=== PATIENT | female | born 1950 | race American Indian/Alaskan Native ===

== ENCOUNTER 2019-10-28 14:19 | Emergency (ER) | payer MEDICARE ==
[2019-10-28 14:33] VITALS: BP 143/88
[2019-10-28 15:08] LABS: Basophils % (Auto) 0.6 % (0.0-1.8); Eosinophils # (Auto) 0.1 K/mm3 (0.0-0.4); Eosinophils % (Auto) 1.5 % (0.0-4.3); Hematocrit 41.3 % (30.3-42.9); Hemoglobin 13.7 gm/dl (10.1-14.3); Lymphocytes # (Auto) 3.1 K/mm3 (1.2-5.4); Lymphocytes % (Auto) 42.8 % (13.4-35.0); Mean Corpuscular HGB Conc 33 % (30-34); Mean Corpuscular Volume 93 fl (79-97); Monocytes # (Auto) 0.7 K/mm3 (0.0-0.8); Monocytes % (Auto) 9.7 % (0.0-7.3); Platelet Count 184 K/mm3 (140-440); Red Blood Count 4.47 M/mm3 (3.65-5.03); Red Cell Distribution Width 13.6 % (13.2-15.2)
--- NOTE | 2019-10-28 15:17 | XRay Report ---
CHEST 2 VIEWS INDICATION: arm pain, n/v. COMPARISON: None FINDINGS: Support devices: None. Heart: Within normal limits. Lungs/pleura: No acute air space or interstitial disease. No pneumothorax. Additional findings: None. IMPRESSION: No acute findings. Signer Name: Kalpesh Whitehead Jr, MD Signed: 10/28/2019 3:13 PM Workstation Name: [id number]
[2019-10-28 15:18] LABS: INR 0.92 (0.87-1.13)
[2019-10-28 15:20] LABS: Partial Thromboplastin Time 31.8 Sec. (24.2-36.6)
[2019-10-28 15:33] LABS: Alanine Aminotransferase 18 units/L (7-56); Albumin 4.1 g/dL (3.9-5); BUN/Creatinine Ratio 19; Blood Urea Nitrogen 13 mg/dL (7-17); Calcium 9.1 mg/dL (8.4-10.2); Hemolysis Index 8
[2019-10-28] MEDS ORDERED: DEXAMETHASONE 4 MG TAB PO ONE (15:36)
[2019-10-28] MEDS ORDERED: NAPROXEN 500 MG TAB PO ONE (15:36)
--- NOTE | 2019-10-28 15:37 | Emergency Department Report ---
ED Extremity Problem HPI - General Chief complaint: Extremity Injury, Upper Stated complaint: LEFT ARM AND SHOULDER PAIN Time Seen by Provider: 10/28/19 15:16 Source: patient Mode of arrival: Ambulatory Limitations: No Limitations - History of Present Illness Initial comments: 69-year-old female with a history of hypertension, hyperlipidemia and thyroid disease presents to the ER today complaining of left arm pain. Patient states that for the past week she has been having intermittent pain that seems to start in her left elbow, left upper arm and radiates up into her left shoulder and left neck, and down into her left hand. She describes the pain as an achy pain. She states that it seemed to be worse when she has it down, but also seems to get worse on full extension of the arm. She reports mild left sided neck pain and states when the pain is intense she gets nauseous. She denies any vomiting. She denies any associated chest pain, shortness of breath, numbness, focal weakness in that arm, headache, dizziness, vision changes or any other symptoms. She denies any injury or repetitive arm use or strenuous activity. She denies any swelling. She states she has been taking Tylenol without much relief of her pain. MD Complaint: extremity pain -: week(s) (1) Location: left, upper extremity - Related Data Previous Rx's Medication Instructions Recorded Last Taken Type HYDROcodone/APAP 5-325 [[place] 1 each PO ONCE PRN #15 tablet 10/28/19 Unknown Rx 5-325 mg TAB] methylPREDNISolone [Medrol 4MG 4 mg PO DAILY #1 tab.ds.pk 10/28/19 Unknown Rx DOSEPAK (21 tabs)] Allergies Allergy/AdvReac Type Severity Reaction Status Date / Time No Known Allergies Allergy Unverified 10/28/19 14:32 ED Review of Systems ROS: Stated complaint: LEFT ARM AND SHOULDER PAIN Other details as noted in HPI Constitutional: denies: chills, fever Cardiovascular: denies: chest pain, palpitations, dyspnea on exertion, orthopnea, edema, syncope, paroxysmal nocturnal dyspnea Gastrointestinal: denies: nausea, vomiting, diarrhea, constipation, hematochezia Genitourinary: denies: urgency, dysuria, frequency, hematuria, abnormal menses Musculoskeletal: arthralgia, myalgia, other (neck pain) Neurological: denies: headache, weakness, numbness, paresthesias, confusion, abnormal gait Psychiatric: denies: anxiety, depression, auditory hallucinations, visual hallucinations, homicidal thoughts, suicidal thoughts ED Past Medical Hx - Medications Home Medications: Home Medications Medication Instructions Recorded Confirmed Last Taken Type HYDROcodone/APAP 5-325 [[place] 1 each PO ONCE PRN #15 tablet 10/28/19 Unknown Rx 5-325 mg TAB] methylPREDNISolone [Medrol 4MG 4 mg PO DAILY #1 tab.ds.pk 10/28/19 Unknown Rx DOSEPAK (21 tabs)] ED Physical Exam - General Limitations: No Limitations General appearance: alert, in no apparent distress - Head Head exam: Present: atraumatic, normocephalic, normal inspection - Eye Eye exam: Present: normal appearance, PERRL, EOMI Pupils: Present: normal accommodation - ENT ENT exam: Present: normal exam, mucous membranes moist - Neck Neck exam: Present: normal inspection, tenderness (upper cervical spine, mild and upper left paraspinal muscle, mild. ), full ROM. Absent: meningismus - Respiratory Respiratory exam: Present: normal lung sounds bilaterally. Absent: respiratory distress - Cardiovascular Cardiovascular Exam: Present: regular rate, normal rhythm, normal heart sounds - Extremities Exam Extremities exam: Present: other (Mild ttp anterior left shoulder and left lateral left elbow. Mild pain with ROM of shoulder but without limitation. Full ROM of elbow without pain or limitation. no swelling noted to LUE, distal pulses nl, strength 5/5, sensation intact) - Neurological Exam Neurological exam: Present: alert, oriented X3, CN II-XII intact. Absent: motor sensory deficit - Psychiatric Psychiatric exam: Present: normal affect, normal mood - Skin Skin exam: Present: intact ED Course Vital Signs 10/28/19 14:25 Temperature 98.5 F Pulse Rate 89 Blood Pressure 143/88 O2 Sat by Pulse 96 Oximetry ED Medical Decision Making - Lab Data Result diagrams: 10/28/19 14:55 10/28/19 14:55 - EKG Data EKG shows normal: sinus rhythm Rate: normal - EKG Data Interpretation: nonspecific ST-T wave phil - Radiology Data Radiology results: report reviewed XRay Report Signed Patient: ZECHARIAH MCCOY MR#: [id number] : 1950 Acct:[id number] Age/Sex: 69 / F ADM Date: 10/28/19 Loc: ED Attending Dr: Ordering Physician: WILLAM PERAZA Date of Service: 10/28/19 Procedure(s): XR chest routine 2V Accession Number(s): [id number] cc: WILLAM PERAZA Fluoro Time In Minutes: CHEST 2 VIEWS INDICATION: arm pain, n/v. COMPARISON: None FINDINGS: Support devices: None. Heart: Within normal limits. Lungs/pleura: No acute air space or interstitial disease. No pneumothorax. Additional findings: None. IMPRESSION: No acute findings. Signer Name: Kalpesh Whitehead Jr, MD Signed: 10/28/2019 3:13 PM Workstation Name: [id number] Transcribed By: TTR Dictated By: KALPESH WHITEHEAD JR, MD Electronically Authenticated By: KALPESH WHITEHEAD JR, MD Signed Date/Time: 10/28/191512 DD/ 11 TD/TT: - Medical Decision Making 69 year old female presents to ED c/o achy pain to left UE x 1 week. she states it startes around left elbow left upper arm and radiates into left hand and up into left shoulder and neck. Its worse when arm is down but sometimes has pain on full extension of arm. She denies any injury or trauma or strenous activity and she has no other associated symptoms with the pain including no CP or SOB. Pt appears well, she is not toxic or ill appearing and not in any distress. She does have TTP to left shoulder, post neck and left lateral elbow as well as pain on extension of shoulder and flex of neck. EKG reviewed, non specific t wave changes noted, otherwise unremarkable. Trop x 2 were negative. Remaining labs unremarkable. CXR was negative. Shoulder xray show mild DJD and cervical spine xray show mild to mod DDD. Suspect pt symptoms related to cervical radiculopa thy/arthritis at this time. Very low suspicion for ACS at this time and low suspicion TIA/CVA given no neuro complaints and normal neuro exam at this time. Case including labs and ekg discussed with Dr Gann. Agreed it sounded more like radiculopathy/DJD related but recommend giving patient strict instructions as to when to return to ED. Discussed labs/EKG and imaging results with patient as well as suspected dx. She will be given something for pain but recommend she f/u closely with her PCP this week for re-eval but to return if her pain worsens and she develops cp, sob, swelling, weakness, or numbness or any new associated symptoms. Pt expresses understanding of instructions and agrees with plan. Critical care attestation.: If time is entered above; I have spent that time in minutes in the direct care of this critically ill patient, excluding procedure time. ED Disposition Clinical Impression: Pain in left arm, Cervical radiculopathy, DJD (degenerative joint disease) of cervical spine, Osteoarthritis of shoulder Disposition: TO HOME OR SELFCARE Is pt being admited?: No Does the pt Need Aspirin: No Condition: Stable Instructions: Osteoarthritis (ED), Cervical Radiculopathy (ED) Additional Instructions: Recommend that you take the medications as prescribed. I recommend close f/u with PCP this week for re-evaluation. Return to ED if your symptoms worsens and you start with CP, SOB, nausea/vomiting or any new symptoms with the pain. Continue taking you daily dose ASA. Prescriptions: methylPREDNISolone [Medrol 4MG DOSEPAK (21 tabs)] 4 mg PO DAILY #1 tab.ds.pk HYDROcodone/APAP 5-325 [[place] 5-325 mg TAB] 1 each PO ONCE PRN #15 tablet PRN Reason: PAIN Referrals: PRIMARY CARE,MD [Primary Care Provider] - 2-3 Days Time of Disposition: 17:48
--- NOTE | 2019-10-28 16:17 | XRay Report ---
CERVICAL SPINE 3 VIEWS INDICATION: shoulder pain/arm pain. COMPARISON: None. IMPRESSION: Normal alignment. Mild to moderate discogenic DJD is identified at C3-4, C5-6 and C6-7. C5-6 appears to be the most affected level. The facet joints are grossly normal. No acute osseous o r soft tissue abnormality. LEFT SHOULDER 3 VIEWS INDICATION: shoulder pain/arm pain. COMPARISON: None. IMPRESSION: No acute osseous or soft tissue abnormality. Mild osteoarthritic changes are identifi ed at the acromioclavicular joint and glenohumeral joint. Signer Name: Kalpesh Whitehead Jr, MD Signed: 10/28/2019 4:12 PM Workstation Name: [id number]
[2019-10-28] MEDS ORDERED: HYDROcodone/ACETAMINOPHEN 5-325 MG TAB PO ONE (17:45)
== END 2019-10-28 17:59 | disposition home or self-care (01) ==
LOC: ED 14:19
DX: M79.602 Pain in left arm (principal); M54.12 Radiculopathy, cervical region; M47.812 Spondylosis without myelopathy or radiculopathy, cervical region; M19.012 Primary osteoarthritis, left shoulder; Z79.899 Other long term (current) drug therapy
CPT/HCPCS: 36415; 71046; 72040; 73030; 80053; 83690; 84484; 85025; 85610; 85730; 93005; 93010; 99283; J8540